=== PATIENT | female | born 1990 | race Caucasian/White ===

== ENCOUNTER 2025-08-08 18:33 | Emergency (ER) | payer OTHER, SELFPAY ==
[2025-08-08 18:47] VITALS: BP 140/101
[2025-08-08 19:14] LABS: Hematocrit 36.8 % (37.0-47.0); Hemoglobin 12.0 g/dL (12.0-16.0); Mean Corp Hgb Conc. 32.6 g/dL (33.0-37.0); Mean Corpuscular Volume 92.5 fL (81.0-99.0); Platelet Count 150 10^3/uL (130-400); Red Cell Dist. Width 13.5 % (11.5-14.5)
[2025-08-08 19:16] LABS: HCG, Serum Qualitative Screen Negative
[2025-08-08 19:26] LABS: Troponin I < 0.012 ng/ml
[2025-08-08 19:40] LABS: ALT (SGPT) 15 U/L (0-35); AST (SGOT) 21 U/L (14-36); Albumin 4.5 g/dl (3.5-5.0); Alkaline Phosphatase 58 U/L (38-126); Blood Urea Nitrogen 9 mg/dl (7-17); Calcium 9.0 mg/dl (8.4-10.2); Carbon Dioxide 27 mmol/L (22-30); Chloride 104 mmol/L (98-107); Glucose 121 mg/dl (70-99); Potassium 3.9 mmol/L (3.5-5.1); Sodium 136 mmol/L (135-145); Total Protein 7.3 g/dl (6.3-8.2); eGFR > 60.00
[2025-08-08 19:56] LABS: Nucleated Red Blood Cells % 0 %
[2025-08-08 21:38] VITALS: BP 95/63
[2025-08-08 21:40] VITALS: BP 102/71; BP 106/72; BP 109/73; PULSE 50; PULSE 52; PULSE 60; BMI 22.3
[2025-08-08 22:00] VITALS: BP 113/71
--- NOTE | 2025-08-08 23:03 | ED.GENMED ---
History of Present Illness
General
Chief Complaint: Fainting Sensation
Source: patient
Exam Limitations: none
Time Seen by Provider: 08/08/25 21:30
Nursing documentation reviewed up to this point in time: agreed with
History of Present Illness
History of Present Illness:
Patient to the emergency department for evaluation after syncopal event. She states she was having her dinner. She states that food was spicy, she took a drink to wash the food down and experienced a sharp pain in her throat. She then syncopized.
Mother reports LOC for approximately 10 seconds. Since then she has been alert awake alert and oriented in no distress. She denies any chest pain or pressure, she denies any abdominal pain, she denies any shortness of breath. She denies any
fever chills recent illness. No prior history of same. She denies headache dizziness or blurred vision. She also has concerns over her bruising to her left lower extremity. She states approximately 1 to 2 weeks ago she hit her noriega and developed
a bruise to the site. She now notes bruising down around her ankle and foot. To emergency department accompanied by mother for evaluation.
Past History
Past History
ED Past Medical History: None
Review of Systems
Review of Systems
Cardiac: Reports syncope
ABD/GI: Reports no symptoms
: Reports no symptoms
Musculoskeletal: Reports no symptoms
Skin: Reports other (Bruising to left noriega left ankle left foot)
Neurological: Reports no symptoms
Psychiatric: Reports no symptoms
Phy Exam
General Physical Exam
General Presentation: well appearing and no apparent distress
General age: appears stated age
General Skin: warm and dry
General Habitus: normal
General Mental: alert
Cardiovascular Exam
Cardiovascular Exam: regular rate/rhythm and no edema
Pulmonary Exam
Pulmonary Exam: lungs clear and no respiratory distress
Neurological Exam
Neurological Exam: alert, oriented x3, CN II-XII intact, no motor deficits, no sensory deficits and speech normal
Musculoskeletal Exam
Musculoskeletal Exam: full ROM and neuro vasc intact
Skin Exam
Skin Exam: normal color, warm/dry and no rash
Psychiatric Exam
Psychiatric Exam: normal mood/affect
Course
Orders/Labs/Results
Orders:
Orders
08/08/25 18:34
EKG [Electrocardiogram (*1)] Urgent
Reason for Study: Vertigo / Dizzy
EKG- Treatment ONCE
08/08/25 18:52
Test Result ONCE
08/08/25 18:57
CMP [Comprehensive Metabolic Panel] Urgent
Complete Blood Count/With Diff Urgent
HCG, Serum Qualitative Screen Urgent
Troponin I Urgent
Abnormal Lab Results
08/08/25
18:57
RBC 3.98 L 10^6/uL
(4.20-5.40)
Hct 36.8 L %
(37.0-47.0)
MCHC 32.6 L g/dL
(33.0-37.0)
MPV 11.3 H fL
(7.4-10.4)
Glucose 121 H mg/dl
(70-99)
08/08/25 18:57
08/08/25 18:57
Vital Signs
Initial and Last Documented VS:
Initial Vital Signs
Temp Pulse Resp BP Pulse Ox
98.1 F 60 16 140/101 100
08/08/25 18:47 08/08/25 18:47 08/08/25 18:47 08/08/25 18:47 08/08/25 18:47
Last Documented Vital Signs
Temp Pulse Resp BP Pulse Ox
98.1 F 52 15 113/71 100
08/08/25 18:47 08/08/25 22:30 08/08/25 21:45 08/08/25 22:00 08/08/25 23:09
*Pulse Oximetry
SaO2: 100
Oxygen Mode of Delivery: Room air
Patient hypoxic: no
*Critical Care Note
Total Time (30-74mins, 75-104mins- exclusive of procedures): Not Applicable
Update Note
Update Note:
Patient to the emergency department after syncopal event tonight at home. She states that she developed an intense pain in her throat after eating something spicy and trying to wash it down with water. Mother reports LOC of approximately 10
seconds. On arrival to ED patient is awake alert and oriented in no distress. Vital signs are stable she remains afebrile. Negative tilt. EKG NSR. Labs reviewed, no concerning findings on CBC or CMP. Suspect vasovagal syncopal event.
Discussed this with her. Left lower extremity hematoma resolving. Old bruising migrating towards ankle and left lateral foot. Discussed with her that this is a normal finding. left lower extremity is neurovascularly intact. Patient will be
discharged home tonight. Will follow-up with primary care provider. She was given instructions on signs and symptoms to return to the emergency department and she is agreeable to this plan.
ED Attending Note
-
Portions of this chart may have been created with voice recognition software.� Occasional wrong word or��sound alike� substitutions may have occurred due to the inherent limitations of voice recognition software.
Discharge Plan
Departure
Patient Disposition: Home (Routine Discharge)
Date of Disposition: 08/08/25
Time of Disposition: 22:31
Patient with high blood pressure during this ER visit?: No
Condition: Good
Covid-19: Not Applicable
Discharge Problem:
Syncope, vasovagal
Instructions: Taking care of bruises, Syncope (Fainting) (DC)
Prescriptions:
No Action
No Current Medications
0
Referrals:
NONE,* [Family Provider, Internal Medicine]
Activity Restrictions/Additional Instructions:
Follow-up with your primary care provider next week. Return to the emergency department immediately for any changes in/worsening of your symptoms.
Interventions
Interventions:
*General Assessment Last Done: 12/24/25 21:39
*Neglect/Abuse Screening Last Done: 08/08/25 18:47
*ED COVID-19 Vaccine History Last Done: 08/08/25 21:39
*ED Influenza Vaccine History Last Done: 08/08/25 21:39
*Risk Screen - Suicide (C-SSRS) Last Done: 08/08/25 18:47
*Nursing Disposition Last Done: 08/08/25 22:45
ED- Cardiac Assessment Last Done: 08/08/25 21:45
ED- Neurological Assessment Last Done: 08/08/25 21:45
Discharge Date and Time
Discharge Date/Time: 08/08/25 22:48
Print Language: OCCITAN
== END 2025-08-08 22:48 | disposition home or self-care (01) ==
LOC: EMR 18:33
PROVIDERS: Emergency Medicine; EMERGENCY PHYSICIAN Student in an Organized Health Care Education/Training Program
DX: R55 Syncope and collapse (principal)
CPT/HCPCS: 99283; 80053; 84484; 84703; 85025; 93005